=== PATIENT | female | born 1980 | race African-American/Black ===

== ENCOUNTER 2022-03-31 16:10 | Emergency (ER) | payer MEDICAID ==
[~2022-03-31] VITALS: Ht 175.3 cm; Wt 61.7 kg
[2022-03-31 16:10] VITALS: BP 113/75
--- NOTE | 2022-03-31 16:12 | NUR ---
PT TAE RENEE, VIA GURNEY TO BED 06.
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
--- NOTE | 2022-03-31 17:25 | NUR ---
MD HERRING AT BEDSIDE FOR EVALUATION
--- NOTE | 2022-03-31 18:00 | NUR ---
PT AWAKE AND SITTING IN BED. STATES "FEELING BETTER "
--- NOTE | 2022-03-31 18:03 | NUR ---
PT AMBULATED TO RESTROOM. PROVIDED W/ PAPER SCRUBS.
[2022-03-31] MEDS ORDERED: ONDANSETRON 4 MG ODT PO ONE (18:40)
[2022-03-31] MEDS ORDERED: ONDA8TAB87 PO (18:42)
[2022-03-31 18:46] VITALS: BP 129/81
--- NOTE | 2022-03-31 18:56 | NUR ---
Patient discharged with v/s stable. Written and verbal after care instructions FOR OPIOID OVERDOSE given and explained. Patient alert, oriented and verbalized understanding of instructions. Ambulatory with steady gait. All questions addressed prior to discharge. ID band removed. Patient advised to follow up with PMD. Rx of ZOFRAN given. Opportunity to ask questions provided and answered.
== END 2022-03-31 18:56 | disposition home or self-care (01) ==
LOC: MED 16:10
DX: T40.5X1A Poisoning by cocaine, accidental (unintentional), initial encounter (principal); F17.200 Nicotine dependence, unspecified, uncomplicated; Y92.89 Other specified places as the place of occurrence of the external cause
CPT/HCPCS: 99283; Q0162